=== PATIENT | male | born 2000 | race Caucasian/White ===

== ENCOUNTER 2022-05-03 22:22 | Emergency (ER) | payer BC, OTHER ==
[~2022-05-03] VITALS: Ht 172.7 cm; Wt 81.8 kg
[~2022-05-03 22:22] MED LIST: NO HOME MEDS
[2022-05-03 22:29] VITALS: BP 143/65
== END 2022-05-04 01:19 ==
LOC: ER 22:23
DX: S01.112A Laceration without foreign body of left eyelid and periocular area, initial encounter (principal); S00.81XA Abrasion of other part of head, initial encounter; Z72.89 Other problems related to lifestyle; X58.XXXA Exposure to other specified factors, initial encounter; Y93.89 Activity, other specified; Y92.89 Other specified places as the place of occurrence of the external cause; Y99.8 Other external cause status
CPT/HCPCS: 12011; 99284

== ENCOUNTER 2025-05-08 15:44 | Inpatient (IN) | payer OTHER ==
[~2025-05-08] VITALS: Ht 182.9 cm; Wt 98.2 kg
[2025-05-09] MEDS ORDERED: loperamide 2mg capsule PO PRN (11:15)
[2025-05-09] MEDS ORDERED: mag hydrox/Alum hydrox/simeth 30ml oral suspension PO PRN (11:15)
[2025-05-09 12:30] VITALS: RESP 16
[2025-05-09] MEDS: NICOTINE POLACRILEX 2 MG LOZENGE BC PRN (18:34)
[2025-05-09 19:00] VITALS: RESP 16; O2SAT 98
[2025-05-09 20:00] VITALS: BP 103/82; PULSE 102; TEMP 98.8; O2SAT 98
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
[2025-05-10 07:00] VITALS: RESP 16
[2025-05-10 08:00] VITALS: BP 103/76; PULSE 75; RESP 16; TEMP 97.2; O2SAT 100
[2025-05-10] MEDS: nicotine 21mg patch - 24 hr TD ONE (10:39)
[2025-05-10 16:43] LABS: CHOL/HDL RATIO 4.1 (0.00-4.99); LDL CHOLESTEROL 96 MG/DL (50-100)
[2025-05-10 19:00] VITALS: RESP 16; O2SAT 97
[2025-05-10 20:00] VITALS: BP 132/82; PULSE 89; RESP 16; TEMP 99.2; O2SAT 97
--- NOTE | 2025-05-10 21:03 | HISTORY AND PHYSICAL ---
History & Physical Providers to CC ~ History of Present Illness Allergies: Coded Allergies: No Known Allergies (Unverified , 07/09/12) Home Medications Home Medications Active Reported No Home Medications (Home Med List) Each Family History Family History: Patient reports no known family medical history. Exam Vitals: Vital Signs Date Time Temp Pulse Resp B/P (MAP) Pulse Ox O2 Delivery O2 Flow Rate FiO2 05/10/25 08:00 97.2 75 16 103/76 (85) 100 Room Air ROVERTO FLORES MD May 10, 2025 21:03
[2025-05-11 07:00] VITALS: RESP 16; O2SAT 99
[2025-05-11] MEDS: pantoprazole 40mg Tablet.DR PO SCH (07:31)
[2025-05-11] MEDS: nicotine 21mg patch - 24 hr TD SCH (07:33)
[2025-05-11 08:00] VITALS: BP 133/86; PULSE 85; RESP 16; TEMP 97.7; O2SAT 99
[2025-05-11 08:58] LABS: MEAN PLATELET VOLUME 9.4 FL (7.4-10.4); RED CELL DISTRIBUTION WIDTH 14.4 % (11.5-14.5)
[2025-05-11 09:09] LABS: CREATININE 0.95 MG/DL (0.60-1.10); TOTAL CARBON DIOXIDE 27.1 MMOL/L (24-32); eCRCL 129 ML/MIN; eGFR > 90 ML/MIN
[2025-05-11] MEDS: magnesium hydroxide 30ml (MOM) UD suspension PO PRN (15:29)
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
[2025-05-11 18:51] VITALS: RESP 16
[2025-05-11 19:18] VITALS: BP 137/76; PULSE 89; RESP 20; TEMP 99.3; O2SAT 98
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
[2025-05-12 07:15] VITALS: RESP 14; O2SAT 100
[2025-05-12 08:03] VITALS: BP 139/80; PULSE 98; RESP 14; TEMP 97.1; O2SAT 100
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
[2025-05-12 18:54] VITALS: RESP 16
--- NOTE | 2025-05-12 19:18 | PROGRESS NOTE- Residence ---
Progress Note - Resident Providers to CC Resident Creating Document: CHELSEA FARMER, JORDAN ~ Antibiotic Timeout Antibiotic Ordered?: Yes Subjective The patient was seen and examined at bedside today. He reports pain at his right great toe abrasion. Ordering an x-ray to rule out fracture. Objective Vital Signs Date Time Temp Pulse Resp B/P (MAP) Pulse Ox O2 Delivery O2 Flow Rate FiO2 05/12/25 18:54 16 Room Air 05/12/25 08:03 97.1 98 139/80 (99) 100 Result Diagram: 05/11/25 0748 05/11/25 0748 Head: Normocephalic with an atraumatic Eyes: Pupils- 3mm, reacting to light, conjunctiva- anicteric Nose and throat: No polyps, septum- normal, no mucosal ulcers Neck: Supple, no lymphadenopathy, no carotid bruit Respiratory: No use of accessory muscles of respiration, Bilateral normal vesiscular breath sounds heard. No wheeze, rhochi or creps Cardiac: S1-S2 heard, rythm regular, no gallop/murmur Abdomen: non distended, no tenderness, no organomegaly, bowel sounds - heard Extremities: Right great toe superficial abrasion Skin: warm and dry, no rash, no purpura Neuro: No focal deficit, gross cranial nerve exam - normal Assessment Assessment Psychosis Suicidal ideation Management as per Psychiatry. Right toe abrasion Follow up with x-ray foot. Started on [place] five q.4h PRN. Disposition: Hospitalist team will continue to follow the patient during the course of his hospital stay. Chelsea Farmer MD Internal Medicine Resident, PGY-2 Date of Service: May 12, 2025 Billing Provider: EMI LEIVA MD, SOWMYA MANJARI, JORDAN May 12, 2025 19:18
[2025-05-12 19:33] VITALS: BP 125/73; PULSE 71; RESP 16; TEMP 97.8; O2SAT 98
[2025-05-12] MEDS: HYDROcodone/acetaminophen 5mg/325mg tablet PO PRN (19:35)
--- NOTE | 2025-05-12 21:25 | RADIOLOGY REPORT ---
CLINICAL INDICATION: pain RIGHT TECHNIQUE: DI FOOT,LIMITED (AP/LAT) Comparison: None FINDINGS/IMPRESSION: : Small cortical fragment laterally adjacent to the distal margin of the 1st proximal phalanx may repre sent fracture of uncertain chronicity. More chronic appearing fracture deformity of the medial base o f the 1st distal phalanx. Valgus angulation about the 1st metatarsal phalangeal joint measures 29 degrees consistent with moder ate hallux valgus. Soft tissues are unremarkable.
[2025-05-13 07:00] VITALS: RESP 16; O2SAT 99
[2025-05-13 08:00] VITALS: BP 120/84; PULSE 89; RESP 16; TEMP 98.4; O2SAT 99
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
--- NOTE | 2025-05-13 14:59 | RADIOLOGY REPORT ---
CT CT LOWER EXTREMITY INDICATION: Right metatarsal fractures EXAM DATE: 05/13/2025 01:52 PM COMPARISON: None RADIATION DOSE: CTDIvol: 14 mGy, DLP: 275 mGy*cm PROCEDURE: Helical CT images were obtained of the foot without contrast. Sagittal and coronal reconst ructions are provided. ADDITIONAL IMAGES: None FINDINGS: BONES: No fracture.Normal anatomic alignment. Tiny ossicles at the 1st DIP joint could be from old tr auma. JOINT SPACES: Maintained. No joint effusion. SOFT TISSUES: within normal limits. VESSELS: unremarkable. IMPRESSION: No acute fracture or dislocation. Tiny ossicles at the 1st DIP joint could be from old trauma.
[2025-05-13 19:00] VITALS: RESP 18; O2SAT 100
--- NOTE | 2025-05-13 19:23 | PROGRESS NOTE- Residence ---
Progress Note - Resident Providers to CC Resident Creating Document: CHAU NEFF RES ~ Antibiotic Timeout Antibiotic Ordered?: No Subjective The patient was seen and examined at bedside today. He reports pain at his right great toe abrasion has decreased compared to yesterday. CT of his lower extremity showed : No acute fracture or dislocation.Tiny ossicles at the 1st DIP joint could be from old trauma. Objective Vital Signs Date Time Temp Pulse Resp B/P (MAP) Pulse Ox O2 Delivery O2 Flow Rate FiO2 05/13/25 18:03 16 05/13/25 08:00 98.4 89 120/84 (96) 99 Room Air Head: Normocephalic with an atraumatic Eyes: Pupils- 3mm, reacting to light, conjunctiva- anicteric Nose and throat: No polyps, septum- normal, no mucosal ulcers Neck: Supple, no lymphadenopathy, no carotid bruit Respiratory: No use of accessory muscles of respiration, Bilateral normal vesiscular breath sounds heard. No wheeze, rhochi or creps Cardiac: S1-S2 heard, rythm regular, no gallop/murmur Abdomen: non distended, no tenderness, no organomegaly, bowel sounds - heard Extremities: Right great toe superficial abrasion Skin: warm and dry, no rash, no purpura Neuro: No focal deficit, gross cranial nerve exam - normal Result Diagram: 05/11/2548 05/11/25 0748 Assessment Assessment 25-year-old male patient with a history of psychosis and suicidal ideation is being managed as per Psychiatry. Patient has a right toe abrasion for which CT of the lower extremity was done Plan Plan Psychosis Suicidal ideation Management as per Psychiatry. Right toe abrasion CT of with lower extremity view showed No acute fracture or dislocation. Tiny ossicles at the 1st DIP joint could be from old trauma. His WBC and procalcitonin normal No further management regarding this aspect Disposition: Hospitalist team will continue to follow the patient during the course of his hospital stay. Chau Neff MD Internal Medicine Resident, PGY-1 Date of Service: May 13, 2025 Billing Provider: EMI LEIVA MD, JAHNAVI, RES May 13, 2025 19:22
[2025-05-13 20:00] VITALS: BP 131/83; PULSE 91; RESP 18; TEMP 98.1; O2SAT 100
[2025-05-14 07:16] VITALS: RESP 14; O2SAT 99
[2025-05-14 08:00] VITALS: BP 123/82; PULSE 78; RESP 14; TEMP 97.5; O2SAT 98
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
[2025-05-14 19:00] VITALS: RESP 18; O2SAT 99
[2025-05-14 20:00] VITALS: BP 138/86; PULSE 88; RESP 18; TEMP 98.5; O2SAT 99
[2025-05-15 07:00] VITALS: RESP 14; O2SAT 99
[2025-05-15] MEDS: ESCITALOPRAM 10 mg tablet 10 MG TABLET PO SCH (07:54)
[2025-05-15 08:00] VITALS: BP 132/80; PULSE 74; RESP 12; TEMP 98.2; O2SAT 99
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
[2025-05-15 19:00] VITALS: RESP 18; O2SAT 98
[2025-05-15 20:00] VITALS: BP 151/81; PULSE 98; RESP 18; TEMP 97.5; O2SAT 98
[2025-05-16 07:30] VITALS: BP 139/88; PULSE 90; RESP 16; TEMP 97.7; O2SAT 98
[2025-05-16 08:00] VITALS: RESP 16; O2SAT 98
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
[2025-05-16] MEDS ORDERED: ARIP20TA63 PO (15:52)
[2025-05-16] MEDS ORDERED: NAPR-56 PO (15:52)
[2025-05-16] MEDS ORDERED: ESCI-8 PO (15:52)
[2025-05-16] MEDS ORDERED: TRAZ-256 PO (15:52)
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
[2025-05-16 19:35] VITALS: RESP 18; O2SAT 98
[2025-05-16 19:36] VITALS: BP 129/79; PULSE 77; RESP 18; TEMP 98.1; O2SAT 98
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
[2025-05-17 07:00] VITALS: BP 116/84; PULSE 94; RESP 16; TEMP 98.1; O2SAT 99
[2025-05-17] MEDS ORDERED: ARIP10TA87 PO (13:06)
[2025-05-17] MEDS ORDERED: NAPR-56 PO (13:06)
[2025-05-17] MEDS ORDERED: ESCI-8 PO (13:06)
[2025-05-17] MEDS ORDERED: TRAZ-251 PO (13:06)
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
[2025-05-17 19:00] VITALS: RESP 15; O2SAT 99
[2025-05-17 20:00] VITALS: RESP 17
[2025-05-18 07:00] VITALS: BP 119/80; PULSE 80; RESP 16; TEMP 98.5; O2SAT 99
[2025-05-18 07:30] VITALS: RESP 16; O2SAT 99
--- NOTE | 2025-05-18 09:11 | DISCHARGE SUMMARY ---
Discharge Summary Providers to CC ~ Discharge Summary Admission Diagnosis: Drug-Induced Psychotic disorder Hospital Course DATE OF ADMISSION: 05/09/25 DATE OF DISCHARGE:05/18/25 Condition on DC: Stable 2 or more antipsychotic used: Yes 2/more antipsychotic addressed: Yes Does Patient smoke: Yes Smoking education given.: Yes *Problems/Diagnosis: (1) Drug-induced psychotic disorder Status: Resolved (2) Suicide attempt Status: Resolved Total Time Spent on D/C: > 30 Minutes Counseling Services Smoking & Tobacco Cessation: > 10 Minutes CODING VISIT-PSYCHIATRY Date of Service: May 18, 2025 Billing Provider: CORRY MALHOTRA DNP Psych Common Visit Codes: [id number] DISCH DAY >30min Psych Secondary Visit Codes: [id number] CHNG SMOKING >10MIN CORRY MALHOTRA DNP May 18, 2025 09:11
== END 2025-05-18 14:09 | disposition home or self-care (01) | DRG 885 ==
LOC: ADULT MH 05-09 11:07
PROVIDERS: ADMIT Psychiatry & Neurology Psychiatry; ATTEND Psychiatry & Neurology Psychiatry
DX: F28 Other psychotic disorder not due to a substance or known physiological condition (principal); R45.851 Suicidal ideations; F32.A Depression, unspecified; Z79.899 Other long term (current) drug therapy
CPT/HCPCS: 36415; 70450; 72110; 73620; 73700; 80053; 80061; 84145; 85025; 85651; 87081; A4649; A6212; A6258; A6449; Q0161; Q0163; Q0177